=== PATIENT | male | born 1940 | race Two or more races ===

== ENCOUNTER 2016-10-27 17:24 | Emergency (ER) | payer OTHER ==
[~2016-10-27] VITALS: Ht 180.3 cm; Wt 77.1 kg
[~2016-10-27 17:24] MED LIST: ADENOSINE 6 MG/2 ML INJ IV ONE; CALCIUM CHLOR(10%) 100MG/ML 10ML SYRINGE IV ONE; EPINEPHrine HCL 1 MG/10 ML SYRG IV ONE; SODIUM BICARBONATE 8.4% INJ 50ML SYRINGE IV ONE
[2016-10-27 17:43] LABS: Base Excess -12.7 mmol/L (-2.0-2.0); Blood 02Sat 81.5 % (96-100); Blood COHb 0.3 % (0.5-1.5); Blood MetHb 0.7 % (0.0-1.5); HCO3 14.1 mmol/L (22-26.0); HHb 18.3 % (0.0-5.0); MODE AMBU BAG; O2Hb 80.7 % (94.0-97.0); PO2 63.5 mmHg (80.0-100.0); PO2(T) 63.5 mmHg (80.0-100.0); Sample Type Arterial; pH 7.211 (7.350-7.450)
[2016-10-27] MEDS ORDERED: SODIUM BICARBONATE 8.4% INJ 50ML SYRINGE ONE (17:51)
[2016-10-27] MEDS ORDERED: NOREPINEPHRINE BITARTRATE 250 ML IV ONE (18:08)
[2016-10-27] MEDS ORDERED: SODIUM CHLORIDE 0.9% 1,000 ML IV ONE ×3 (18:14→18:15)
[2016-10-27] MEDS ORDERED: NOREPINEPHRINE BITARTRATE 250 ML IV SCH (18:15)
[2016-10-27] MEDS ORDERED: cefTRIAXone 1GM/50ML D5W 50 ML IV ONE (18:15)
[2016-10-27] MEDS ORDERED: metroNIDAZOLE 500MG/100ML 100 ML IV ONE (18:15)
[2016-10-27] MEDS ORDERED: SODIUM BICARBONATE 8.4 % INJ 50ML VIAL IV ONE (18:15)
[2016-10-27 18:53] VITALS: BP 61/46
[2016-10-27 18:55] LABS: CONDITION Y; DEFINITIVE SEE PRINTOUT; Hematocrit 15.2 % (41.0-53.0); Mean Corpuscular Hemoglobin 33.2 pg (28.0-32.0); Mean Corpuscular Volume 94.7 fL (80.0-100.0); Mean Platelet Volume 8.6 fL (7.4-10.4); Platelet Count (auto) 52 10^3/uL (140-450); SUSPECT SEE PRINTOUT; White Blood Cell 2.5 10^3/uL (4.4-10.8)
[2016-10-27 18:59] LABS: Albumin 0.6 g/dL (3.4-5.0); Anion Gap 16 (5-15); BUN/Creatinine Ratio 34.9; Blood Urea Nitrogen 52 mg/dL (7-18); Carbon Dioxide 10 mmol/L (21-32); Chloride 119 mmol/L (98-107); GFR African American 59 mL/min; GFR Non-African American 49 mL/min; Glucose 107 mg/dL (74-106); Sodium 145 mmol/L (136-145)
[2016-10-27 19:06] LABS: Lactic Acid w/Reflex 7.7 mmol/L (0.4-2.0)
[2016-10-27 19:11] LABS: Urine Color Brown (Yellow); Urine Glucose Normal (Normal); Urine Hyaline Cast FEW /lpf (0 - 2); Urine Ketone Negative (Negative); Urine Mucus FEW (None Seen); Urine Nitrite Negative (Negative); Urine RBC 12 /hpf (0 - 3); Urine Squamous Epithelial Cell FEW /hpf (<5)
[2016-10-27] MEDS ORDERED: DOPamine 1600MCG/ML 250 ML IV ONE (19:15)
[2016-10-27 19:23] LABS: Urine Bilirubin 1+ (Negative); Urine Blood 2+ /uL (Negative)
[2016-10-27 19:27] LABS: Alkaline Phosphatase 699 U/L (45-117); Bilirubin, Total 2.5 mg/dL (0.2-1.0); Red Cell Distribution Width 24.1 % (11.6-16.0); Total Protein 1.6 g/dL (6.4-8.2)
[2016-10-27 19:29] LABS: Aspartate Aminotransferase 240 U/L (15-37); Potassium 4.8 mmol/L (3.5-5.1)
[2016-10-27 19:30] LABS: Hemoglobin 5.3 g/dL (13.5-17.5)
[2016-10-27 19:31] LABS: Metamyelocytes % 0; Myelocytes % 0; Promyelocytes % 0
[2016-10-27 19:32] LABS: REFLEX LACTIC ACID YES OR NO YES
[2016-10-27 19:37] LABS: INR 4.16 (0.9-1.15)
[2016-10-27 19:38] LABS: Partial Thromboplastin Time > 170.00 sec (22.64-33.71)
[2016-10-27 20:04] LABS: Calcium < 5.0 mg/dL (8.5-10.1)
[2016-10-27] MEDS ORDERED: IOHEXOL 350 MG/ML 100ML IJ ONE (20:41)
[2016-10-27 22:10] LABS: Platelet Estimate Decreased; Reactive Lymphocytes 1
[2016-10-27 22:11] LABS: Anisocytosis Moderate
[2016-10-28] MEDS ORDERED: AMIODARONE HCL 900 MG in DEXTROSE 500 ML IV SCH (00:16)
== END 2016-10-27 19:54 | disposition expired ==
LOC: ER 17:27 → EDBD 17:27 → ER 19:54
DX: I46.9 Cardiac arrest, cause unspecified (principal); I25.810 Atherosclerosis of coronary artery bypass graft(s) without angina pectoris; Z95.1 Presence of aortocoronary bypass graft
CPT/HCPCS: 36415; 36556; 36600; 71010; 80053; 80307; 81001; 82805; 83605; 84484; 85007; 85027; 85379; 85610; 85730; 87040; 87070; 87077; 87186; 87205; 92950; 93005; 96365; 99291; J0153; J0171; J0696; J1265; J3490; J7030; J7060